=== PATIENT | male | born 1965 | race Caucasian/White ===

== ENCOUNTER 2020-01-04 09:41 | Emergency (ER) | payer SELFPAY ==
[~2020-01-04] VITALS: Ht 170.2 cm; Wt 66.7 kg
[2020-01-04 10:13] VITALS: Ht 170.2 cm; Wt 66.7 kg
[2020-01-04 10:37] LABS: CARBON DIOXIDE 25.7 mmol/L (21-32); CHLORIDE SERUM 100 mmol/L (98-107); GFR1 > 60 mL/min; GLUCOSE SERUM 196 mg/dL (74-106); POTASSIUM SERUM 3.6 mmol/L (3.5-5.1); SODIUM SERUM 137 mmol/L (136-145)
[2020-01-04 10:44] LABS: ALBUMIN 3.9 g/dL (3.4-5.0); ALKALINE PHOSPHATASE 96 U/L (46-116); ALT/SGPT 49 U/L (16-63); AST/SGOT 56 U/L (15-37); BILIRUBIN TOTAL 0.84 mg/dL (0.20-1.00); CHOLESTEROL 277 mg/dL (<200); CHOLESTEROL/HDL RATIO 2.6; HDL CHOLESTEROL 105 mg/dL (40-60); LIPASE 217 IU/L (73-393); TRIGLYCERIDES 100 mg/dL (<150)
[2020-01-04 10:51] LABS: T3 TOTAL 1.11 ng/mL
[2020-01-04 11:27] LABS: FREE T4 0.96 ng/dL (0.76-1.46); FREE THYROXINE INDEX 2.1 ug/dL (1.4-4.5)
[2020-01-04 11:28] LABS: BASOPHIL % 0.4 % (0-2); PLATELET COUNT 146 x10^3mcL (130-400); RED CELL DISTRIBUTION WIDTH 14.5 % (11.5-14.5)
[2020-01-04 12:38] LABS: UA SPECIFIC GRAVITY >=1.030 (1.005-1.035); microscopic required? YES; urine erythrocyte 2+ (NEGATIVE)
[2020-01-04 13:00] LABS: AMPHETAMINE QUAL UR NONE DETECTED (See below)
[2020-01-04 13:12] VITALS: BP 147/103
== END 2020-01-04 10:40 | disposition home or self-care (01) ==
LOC: ED 09:41
PROVIDERS: Specialist
DX: F10.239 Alcohol dependence with withdrawal, unspecified (principal); G40.509 Epileptic seizures related to external causes, not intractable, without status epilepticus
CPT/HCPCS: 83880; 84439; G0480; J2060; Q0092